=== PATIENT | male | born 1950 | race Caucasian/White ===

== ENCOUNTER → 2017-10-04 | Outpatient (CLI) | payer OTHER | LOC: M.RAD 10-01 15:42 | DX: N63.20 Unspecified lump in the left breast, unspecified quadrant (principal); N64.4 Mastodynia ==

== ENCOUNTER 2018-08-05 10:50 | Inpatient (IN) | payer OTHER ==
[~2018-08-05] VITALS: Ht 172.7 cm; Wt 88.5 kg
--- NOTE | ~2018-08-05 | CON ---
[address] [address] CONSULTATION Name: TANISHA LEO Room: [address] IN M.R.#: [id number] Admission: 08/05/18 Attend Phys: Jamaica Núñez MD Discharge: Date of : 46 Report #: [id number] THIS REPORT FOR: //name// CC: Jamaica Calhoun REASON FOR CONSULTATION: Elevated creatinine. HISTORY OF PRESENT ILLNESS: The patient is a 68-year-old male known to our practice, followed by Dr. Whiteside, history of membranous nephropathy, chronic kidney disease stage 4 with creatinine on the last visit in the office at 2.78 from 06/13/2018, history of AAA repair recently at [facility] with endovascular stent placement, urinary retention, and also having some bladder pain, he was supposed to undergo CT scan yesterday as an outpatient ordered by his urologist, but felt sick over the last few days and advised to go to the ER instead of going to the [facility]. He states that he has not eaten or drank much since 5 days ago, he feels nauseated. Vomiting x 1. No bowel movements for the last 5 days. Also, reports having some epigastric/chest pain. In the ER, he was noted to have elevated creatinine of 3, so admitted for further management. He is started on IV fluid and currently receiving normal saline at 100 mL per hour. He feels better today. He has not had bowel movement, but no vomiting and his energy level is also improving. Denies any shortness of breath, chest pains at this time or palpitations. PAST MEDICAL HISTORY: As mentioned above, history of membranous nephropathy, chronic kidney disease stage 4, baseline creatinine of about 2.7, hypoalbuminemia, chronic lower extremity edema, depression, urinary retention, anemia of chronic kidney disease, hypothyroidism, hyperlipidemia and recent AAA repair with endovascular stent. FAMILY HISTORY: Family history of diabetes in his sister and brother, heart disease in his mother, father and cause for father's at age 67. Liver disease on his sister. No family history of kidney disease. SOCIAL HISTORY: He is single. He is a retired construction project manager. Previous alcohol use, quit alcohol in 2013. He is a former smoker 1 pack per day for 60 years, but stopped in 2000. HOME MEDICATIONS: Allopurinol 100 mg daily, aspirin 81 mg daily, vitamin B12 1000 mcg weekly, Lasix 20 mg daily, lactulose 10 mg daily, levothyroxine 50 mcg daily, lovastatin 40 mg daily, metoprolol 100 mg daily, terazosin 2 mg at bedtime, and torsemide 20 mg daily. REVIEW OF SYSTEMS: The 12-point review of system was done and pertinent positives are mentioned in the history of present illness. All other systems [place] [address] CONSULTATION Name: LEOTANISHA MORAN Room: [address] IN ..#: [id number] Admission: 08/05/18 Attend Phys: Jamaica Núñez MD Discharge: Date of : 46 Report #: [id number] PHYSICAL EXAMINATION: VITAL SIGNS: Has blood pressure of 132/67, pulse rate of 71, respiratory rate of 12, temperature of 98.4, oxygen saturation is 100% on 1 liter nasal cannula. GENERAL: He does not appear to be in any respiratory distress at this time. HEENT: Has normocephalic, atraumatic head, pink conjunctivae and anicteric sclerae. No JVD. NECK: Supple neck. LUNGS: Sounds are clear to auscultation bilaterally. No wheezing. ABDOMEN: Soft, nontender, positive bowel sounds. CARDIOVASCULAR: Showed normal S1 and S2. Has a systolic murmur. ABDOMEN: Soft and nontender. Positive bowel sounds. EXTREMITIES: Showed trace bilateral lower extremity edema. He states that his edema has improved over the last few days, but normally has significant edema when he ambulates. SKIN: Showed warm and dry skin. LABORATORY VALUES: Reviewed. Sodium of 142, potassium 4.6, chloride 110, carbon dioxide 23, BUN 37, creatinine 2.9, glucose of 75, calcium 8, magnesium 1.6. White cell count of 6.5, hemoglobin 10.1, platelet count of 170. Urinalysis showed yellow urine, clear, 3+ protein, blood is 1+. His BUN and creatinine are 35 and 3, sodium 139, potassium 4.2, chloride 105, carbon dioxide 21. White cell count of 8.9, hemoglobin 12, platelet count of 247. Chest x-ray showed no acute cardiopulmonary abnormality. Nuclear scan V/Q, low probability for PE. Ultrasound renal is unremarkable. Moderate postvoid residual seen in the bladder. IMPRESSION: 1. Acute kidney injury on underlying chronic kidney disease stage 4 with baseline creatinine of 2.7 and GFR of 22. Acute kidney injury, likely prerenal azotemia with his reduced oral intake over the last 5 days. He is not too far off from his baseline, though. 2. Membranous nephropathy, followed by Dr. Whiteside in our office. 3. Essential hypertension. 4. Abdominal aortic aneurysm, recent endovascular stent placement. 5. Atypical chest pain. 6. Hyperlipidemia. 7. Proteinuria, again secondary to his nephrotic syndrome with membranous nephropathy. 8. Anemia of chronic kidney disease. 9. Chronic bilateral lower extremity edema. 10. Secondary hyperparathyroidism. 11. Hyperuricemia. 12. Urinary retention. PLAN: Agree with administration of gentle IV fluids. He is not too far off from his baseline, so if once current fluid is finished, [place] [address] CONSULTATION Name: TANISHA LEO Room: [address] IN M.R.#: [id number] Admission: 08/05/18 Attend Phys: Jamaica Núñez MD Discharge: Date of : 46 Report #: [id number] Per review of the office records, he has about 1465-6421 gram estimated proteinuria. We will need to review more to see what treatment has been given to him in the past for his membranous nephropathy. Also, need to review kidney biopsy reports. We will quantify proteinuria with urine [id number] ratio now. Follow up on limited echocardiogram and chest pain workup per flexible babysitter. Avoid nephrotoxins. We will continue calcitriol for secondary hyperparathyroidism. Follow up on repeat PTH level. For his urinary retention obtain bladder scan. May need to straight cath, if postvoid residual over 300. We will continue tamsulosin. Further recommendations to follow based on hospital course. Once again, thank you for the consult. By: [id number] Diaz MD /nt
[2018-08-05 10:55] VITALS: BP 189/88
[2018-08-05 11:06] LABS: ABSOLUTE BASOPHILS 0.1 thou/uL (0.0-0.2); ABSOLUTE EOSINOPHILS 0.3 thou/uL (0.0-0.7); ABSOLUTE LYMPHOCYTES 3.4 thou/uL (0.8-5.3); ABSOLUTE MONOCYTES 0.6 thou/uL (0.0-1.2); ABSOLUTE NEUTROPHILS 4.7 thou/uL (1.6-8.1); BASOPHILS 0.6 %; EOSINOPHILS 2.9 %; HEMATOCRIT 36.4 % (42.0-52.0); LYMPHOCYTES 37.7 %; MCH 32.1 pg (26.0-34.0); MCV 97.4 fL (80.0-100.0); MONOCYTES 6.4 %; MPV 7.5 fl. (7.2-11.1); NUCLEATED RBCS 0 /100WBC; PLATELET COUNT* 247 thou/uL (150-400); POLYS 52.4 %; RBC 3.74 mil/uL (4.50-6.00); RDW-CV 13.1 % (10.5-14.5); WBC 8.9 thou/uL (4.0-11.0)
[2018-08-05 11:20] LABS: PROTIME 10.5 Seconds (9.20-11.50)
[2018-08-05 11:21] LABS: ANION GAP 13 mmol/L (7-16); BUN 35 mg/dL (7-18); CALCIUM 8.7 mg/dL (8.5-10.1); CHLORIDE 105 mmol/L (98-107); CO2 21 mmol/L (21-32); GLUCOSE 110 mg/dL (70-99); POTASSIUM 4.2 mmol/L (3.5-5.1); SODIUM 139 mmol/L (136-145)
[2018-08-05 11:33] LABS: ALBUMIN 2.9 g/dL (3.4-5.0); ALKALINE PHOSPHATASE 133 U/L (46-116); LIPASE 138 U/L (73-393); NT-PRO BRAIN NAT PEPTIDE 2138 pg/mL (<300); SGOT 16 U/L (15-37); SGPT 16 U/L (30-65); TOTAL BILIRUBIN 0.3 mg/dL (<0.1-1.0); TOTAL PROTEIN 6.6 g/dL (6.4-8.2); TROPONIN-I LEVEL <0.06 ng/mL (<0.06)
--- NOTE | 2018-08-05 14:06 | NUR ---
PT'S PCP CONTACTED TO OBTAIN MEDICATION LIST
[2018-08-05] MEDS ORDERED: B12INJ IM (14:16)
[2018-08-05] MEDS ORDERED: ALLOPURINOL 10100 M1 PO (14:16)
[2018-08-05] MEDS ORDERED: ASPIR 8181 MG PO (14:16)
[2018-08-05] MEDS ORDERED: LASIX 20 MG TAB20 MG PO (14:17)
[2018-08-05] MEDS ORDERED: SYNTHROID50 MCG PO (14:17)
[2018-08-05] MEDS ORDERED: LACTULOSE10 GM/154 PO (14:17)
[2018-08-05] MEDS ORDERED: HYTRIN 2MG CAPSU2 M1 PO (14:18)
[2018-08-05] MEDS ORDERED: FLOMAX0.4 MG PO (14:18)
[2018-08-05] MEDS ORDERED: ALTOPREV40 M1 PO (14:18)
[2018-08-05] MEDS ORDERED: TOPROL XL100 MG PO (14:18)
--- NOTE | 2018-08-05 16:56 | EKG ---
[place] [address] ELECTROCARDIOGRAM REPORT Name: TANISHA LEO Room: [place] [address] ADM IN .R.#: [id number] Admission: 08/05/18 Attend Phys: Jamaica Núñez MD Discharge: Date of : 46 Report #: [id number] THIS REPORT FOR: //name// [facility] ED Test Date: 2018-08-05 Test Time: 10:54:35 Pat Name: TANISHA LEO Department: Room: [facility] Gender: Nba Player: : 1950 Requested By: Lynette Kenny Order Number: [id number] MD: Driss Price Measurements Intervals [place] Rate: 76 P: 30 MD: 180 QRS: 27 QRSD: 88 T: 32 QT: 407 QTc: 458 Interpretive Statements Sinus rhythm Baseline wander in lead(s) V1 No previous ECG available for comparison Electronically Signed On 08-05-2018 16:56:12 CDT by Driss Price [email or web address] <ELECTRONICALLY SIGNED> By: Driss Price MD, [facility] 08/05/18 1656 1054 105 Driss Price MD, FACC /EPI
[2018-08-05 18:46] VITALS: BP 147/76
[2018-08-05 20:01] VITALS: BP 137/86
[2018-08-05 22:17] LABS: URINE BILIRUBIN NEGATIVE (Negative); URINE BLOOD 1+ (Negative); URINE CLARITY CLEAR; URINE COLOR YELLOW; URINE GLUCOSE-RANDOM 1+ (Negative); URINE KETONES TRACE (Negative); URINE LEUKOCYTES NEGATIVE (Negative); URINE NITRITE NEGATIVE (Negative); URINE PROTEIN 3+ (Negative); URINE SPECIFIC GRAVITY 1.025 (1.005-1.030); URINE UROBILINOGEN 0.2 E.U./dl (0.2-1.0)
[2018-08-05 22:35] LABS: BACTERIA 1-9 Few /HPF (None Seen); CASTS None Seen /LPF (None Seen); CRYSTALS None Seen /LPF (None Seen); SQUAMOUS NONE SEEN /LPF (0-3); URINE RBC 0-2 Rare /HPF (0-2); URINE WBC 0-5 Rare /HPF (0-5)
[2018-08-06 00:29] VITALS: BP 142/66; BP 148/72
[2018-08-06 04:00] VITALS: BP 137/60
[2018-08-06 05:16] LABS: HEMOGLOBIN 10.1 gm/dL (14.0-18.0); MCH 32.9 pg (26.0-34.0); MCHC 33.7 g/dL (28.0-37.0); MCV 97.5 fL (80.0-100.0); MPV 8.4 fl. (7.2-11.1); RBC 3.08 mil/uL (4.50-6.00); RDW-CV 12.7 % (10.5-14.5); WBC 6.5 thou/uL (4.0-11.0)
[2018-08-06 05:27] LABS: ALBUMIN 2.2 g/dL (3.4-5.0); CREATININE 2.9 mg/dL (0.6-1.3); MAGNESIUM 1.6 mg/dL (1.8-2.4); POTASSIUM 4.6 mmol/L (3.5-5.1); TOTAL BILIRUBIN 0.2 mg/dL (<0.1-1.0); TOTAL PROTEIN 5.2 g/dL (6.4-8.2)
--- NOTE | 2018-08-06 06:03 | NUR ---
PT ARRIVED TO UNIT AT 2044 VIA CART. [facility] PROGRAM REPRESENTATIVE IN PLACE, TRACING SB/SR THIS SHIFT. HOURLY ROUNDING COMPLETED. IV FLUIDS INFUSING. PT DENIES PAIN THIS SHIFT. CALL LIGHT WITHIN REACH.
[2018-08-06 08:00] VITALS: BP 132/67
--- NOTE | 2018-08-06 09:00 | NUR ---
ASSUMED CARE OF PT AT 0730. PT RESTING IN BED. PT A&0X4, DENIES ANY PAIN OR SHORTNESS OF BREATH AT THIS TIME. PT TRACING SB/SR ON THE WINDOW TRIMMER APPRENTICE. ON 1L NC SAT UPPER 90'S. IVF. PT UP WITH 1 ASSIST AND CANE TO BATHROOM. STRICT I/O IN PLACE. PVR 176. UROLOGY, NEPHRO AND CARDIO CONSULT IN PLACE. PT GOAL FOR TODAY IS TITRATE OXYGEN, REMAIN FREE FROM CHEST PAIN AND PT AND OT EVAL AND TREAT. AM ASSESSMENT CHARTED. MEDICATIONS PER APR. PT REPOSITIONS SELF. HOURLY ROUNDING OBSERVED. BED IN LOW POSITION. CALL LIGHT WITHIN REACH. WILL CONTINUE PLAN OF CARE.
--- NOTE | 2018-08-06 10:19 | NUR ---
Nutrition: Pt admitted with CHF, elevated BNP, chest pain. Pt had recent AAA repair at [facility]. Has N/V, no BM, no appetite BELT MOLDER. Now, he has no nausea, no chest pain. Diet is advanced to 2gm Na. Alb 2.2, BUN 37, cr 2.9. Wt: 195#. Hopeful for good meal intake. Pt feels better. Low to mild risk.
[2018-08-06 12:18] VITALS: BP 160/70
--- NOTE | 2018-08-06 14:30 | 2DMMODE ---
[place] [address] 2 D/M-MODE ECHOCARDIOGRAM Name: AHMETTANISHA Room: [address] IN [facility]#: [id number] Admission: 08/05/18 Attend Phys: Jamaica Núñez, Discharge: Date of : 46 Date of Service: 08/06/18 1430 Report #: [id number] THIS REPORT FOR: //name// APPROVED REPORT Study performed: 08/06/2018 11:45:38 EXAM: Limited 2D, Doppler, and color-flow Echocardiogram Patient Location: In-Patient Room #: 209 Status: routine BSA: 2.04 HR: 55 bpm BP: 132/67 mmHg Rhythm: NSR Other Information Study Quality: Good Indications Elevated BNP 2D Dimensions IVSd: 12.30 (7-11mm) LVOT Diam: 20.61 (18-24mm) LVDd: 52.60 mm PWd: 12.17 (7-11mm) Ascending Ao: 34.59 (22-36mm) LVDs: 33.33 (25-40mm) Volumes Left Atrial Volume (Systole) LA ESV Index: 35.00 mL/m2 Aortic Valve AoV Peak Erich.: 2.15 m/s AO Peak Gr.: 18.40 mmHg LVOT Max P.82 mmHg AO Mean Gr.: 11.16 mmHg LVOT Mean P.91 mmHg LVOT Max V: 1.31 m/s AO V2 VTI: 43.12 cm LVOT Mean V: 0.77 m/s EAN (VTI): 2.12 cm2 LVOT V1 VTI: 27.42 cm Left Ventricle The left ventricle is normal size. There is normal LV segmental wall motion. Mild concentric left ventricular hypertrophy. The left ventricular systolic function is normal. The left ventricular ejection fraction is within the normal range. LVEF is 60-65%. [place] [address] 2 D/M-MODE ECHOCARDIOGRAM Name: LEOTANISHA MORAN Room: [address] IN .R.#: [id number] Admission: 08/05/18 Attend Phys: Jamaica Núñez, Discharge: Date of : 46 Date of Service: 08/06/18 1430 Report #: [id number] Right Ventricle The right ventricle is normal size. The right ventricular systolic function is normal. Atria Left atrium is at the upper limits of normal. The right atrium size is normal. Aortic Valve Mild aortic valve sclerosis. No aortic regurgitation is present. Mild aortic stenosis.Mean gradient 11mmHg Mitral Valve The mitral valve is normal in structure. There is no mitral valve regurgitation noted. No evidence of mitral valve stenosis. Tricuspid Valve The tricuspid valve is normal in structure. Unable to assess PA pressure. Trace tricuspid regurgitation. Pulmonic Valve The pulmonary valve is normal in structure. There is no pulmonic valvular regurgitation. Great Vessels The aortic root is normal in size. IVC is normal in size and collapses >50% with inspiration. Pericardium There is no pericardial effusion. <Conclusion> LVEF is 60-65%. There is normal LV segmental wall motion. No aortic regurgitation is present. Mild aortic stenosis.Mean gradient 11mmHg Mild concentric left ventricular hypertrophy. There is no mitral valve regurgitation noted. No evidence of mitral valve stenosis. <ELECTRONICALLY SIGNED> By: Willy Donnelly MD, FACC 08/06/18 1430 1430 1430 Willy Donnelly MD, FACC /INF
[2018-08-06 15:48] VITALS: BP 124/69
--- NOTE | 2018-08-06 16:18 | NUR ---
Pt is A&O. Resides at home, dtr lives with him. Dtr does most of the IADLs, Pt independent with ADLs and continues to drive some. Pt uses a cane for mobility. Pt stated that he did 3 months of outpt therapy here at [facility]. No hx of HH or SNF. No home o2. Goal is home at dc, Pt open to HH if ordered. Following.
--- NOTE | 2018-08-06 18:05 | NUR ---
NO ACUTE CHANGES THROUGHOUT SHIFT, REFER TO CHARTING. PT SLOWLY PROGRESSING TOWARDS GOALS. PVR COMPLETED WITH RESULTS OF LESS THAN 200. UA OBTAINED. REFER TO RESULTS. CONTINUES TO TRACE SB/SR ON THE PRIVATE DUTY RN. ON 1L NC SAT UPPER 90'S. PT UP WITH SBA AND CANE TO BATHROOM. IVF. UROLOGY CONSULT IN PLACE-NO NEW ORDERS RECEIVED AT THIS TIME-WILL CONTINUE TO MONITOR PVR'S. PT WORKED WITH PT AND OT TODAY-TOLERATED WELL. PT SEEN BY CARDIOLOGY TODAY-ORDERS RECEIVED FOR ECHO. REFER TO RESULTS. MEDICATIONS PER APR. PT REPOSITIONS SELF. HOURLY ROUNDING OBSERVED. BED IN LOW POSITION. CALL LIGHT WITHIN REACH. WILL CONTINUE PLAN OF CARE.
[2018-08-06 20:00] VITALS: BP 152/75
[2018-08-07] VITALS: BP 167/78
[2018-08-07 04:00] VITALS: BP 172/82
--- NOTE | 2018-08-07 07:05 | NUR ---
PATIENT SLEPT MOST OF THE NIGHT. IV FLUIDS CONTINUE TO INFUSE AT 100 ML/HR. PATIENT HAD NO COMPLAINTS OF PAIN. PAITENT REMAINS SINUS SUZAN ON THE MONITOR. WILL CONTINUE TO MONITOR.
[2018-08-07 07:45] VITALS: BP 149/80
--- NOTE | 2018-08-07 09:00 | NUR ---
ASSUMED CARE OF PT AT 0730. PT RESTING IN BED. PT A&0X4, DENIES ANY PAIN OR SHORTNESS OF BREATH AT THIS TIME. PT TRACING SB/SR ON THE TOBACCO PACKING MACHINE OPERATOR. ON RA SAT UPPER 90'S. PT UP WITH 1 ASSIST AND CANE TO BATHROOM. PT GOAL FOR TODAY IS STRICT I/O NEPHRO CONSULT IN PLACE AND HAVE A BOWEL MOVEMENT. AM ASSESSMENT CHARTED. MEDICATIONS PER APR. PT REPOSITIONS SELF. HOURLY ROUNDING OBSERVED. BED IN LOW POSITION. CALL LIGHT WITHIN REACH. WILL CONTINUE PLAN OF CARE.
[2018-08-07 09:15] LABS: CALCIUM 7.8 mg/dL (8.5-10.1)
[2018-08-07 11:48] VITALS: BP 195/91
--- NOTE | 2018-08-07 11:58 | NUR ---
Spoke with , anticipate dc tomorrow to home with HH. Following.
--- NOTE | 2018-08-07 17:18 | CON ---
[address] [address] CONSULTATION Name: TANISHA LEO Room: [address] IN M.R.#: [id number] Admission: 08/05/18 Attend Phys: Jamaica Núñez MD Discharge: Date of : 46 Report #: [id number] THIS REPORT FOR: //name// CC: Jamaica Tomasoh DATE OF SERVICE: 08/06/2018 UROLOGY CONSULT NOTE REASON FOR CONSULTATION: Urinary retention. REFERRING PHYSICIAN: Jamaica Núñez MD HISTORY OF PRESENT ILLNESS: This is a 68-year-old gentleman who is well known to my partner, Dr. Mcdonnell, who follows him for benign prostate hypertrophy and microscopic hematuria. He was seen most recently by Dr. Mcdonnell on 07/08/2018 to follow up on his microscopic hematuria and benign prostate hypertrophy. He has had noncontrast CT scan in early 02/2018 and cystoscopy in 04/08/2018, which revealed bilobar hypertrophy of the prostate, moderate trabeculations and scattered cellules without any tumors or lesions. He was tentatively scheduled for cystoscopy with bilateral retrogrades; however, he was found to have a large abdominal aortic aneurysm and recently underwent repair for that. He was actually scheduled to follow up with Dr. Mcdonnell today, but the patient developed chest pain and was advised to be presented to the Emergency Room, for which he was admitted and further workup pursued. A renal ultrasound was obtained due to the patient's significant renal insufficiency and it revealed a moderate postvoid residual. Urology was consulted for urinary retention. At the time of examination, the patient denied any frequency or urgency, does have a slow urinary stream and has to double void to completely empty, but these findings are stable. He is taking Flomax without any significant side effects. PAST MEDICAL HISTORY: Coronary artery disease, chronic renal insufficiency, congestive heart failure, hypertension and bradycardia. ALLERGIES: No known drug allergies. SOCIAL HISTORY: He is positive for tobacco use. Chews tobacco and smokes every day. Denies alcohol use. FAMILY HISTORY: Noncontributory. REVIEW OF SYSTEMS: See HPI. A 14-point review of systems otherwise reviewed and negative. MEDICATIONS: Allopurinol, aspirin, vitamin B12, furosemide, lactulose, [place] [address] CONSULTATION Name: TANISHA LEO Room: [address]#: [id number] Admission: 08/05/18 Attend Phys: Jamaica Núñez MD Discharge: Date of : 46 Report #: [id number] Synthroid, lovastatin, metoprolol, tamsulosin, and terazosin. PHYSICAL EXAMINATION: VITAL SIGNS: Temperature 36.8, heart rate 57, respiratory rate 16, blood pressure 124/69. GENERAL: He is alert and oriented x3, no apparent distress. HEENT: Normocephalic, atraumatic. NECK: Supple. LUNGS: Clear. HEART: Regular rate and rhythm. ABDOMEN: Soft, nontender, nondistended. BACK: No CVA tenderness. SKIN: Warm, dry and intact. EXTREMITIES: No cyanosis, clubbing, edema. NEUROLOGIC: Cranial nerves 2-12 are intact. GENITOURINARY: No suprapubic tenderness or palpable bladder fullness. LABORATORY DATA: White count 6.5, hemoglobin 10.1, platelets 170. Sodium 142, potassium 4.6, BUN 37, creatinine 2.9. Urinalysis, 0-2 red blood cells, 0-5 white blood cells 1-9 bacteria. Renal ultrasound reviewed the images that show unremarkable kidneys, moderate postvoid residual bladder volume, this was not measured. ASSESSMENT AND PLAN: 1. Urinary retention, likely secondary to benign prostatic hypertrophy. 2. Postvoid residuals have been 165 and 180 per the nurses. 3. I recommend recheck another PVR. If it remains less than 200, then no further testing is necessary at this time. 4. Continue Flomax. 5. Follow up with Dr. Mcdonnell in 2-3 weeks after discharge to check postvoid residual and continue workup for microscopic hematuria. 6. Microscopic hematuria. Currently, the patient is undergoing workup by Dr. Mcdonnell. Noncontrast CT and cystoscopy so far have been negative other than benign prostate hypertrophy. There was tentative plans for cystoscopy with bilateral retrogrades once the patient has recovered from his abdominal aortic aneurysm surgery. This can be done as an outpatient when the patient is more stable. Thank you for this consult. [place] [address] CONSULTATION Name: TANISHA LEO Room: [address] IN [facility]#: [id number] Admission: 08/05/18 Attend Phys: Jamaica Núñez MD Discharge: Date of : 46 Report #: [id number] Follow up with Dr. Mcdonnell in 2-4 weeks. <ELECTRONICALLY SIGNED> By: Fco Spencer MD 08/07/18 1718 1748 [id number] Spencer MD /nt
--- NOTE | 2018-08-07 17:52 | NUR ---
NO ACUTE CHANGES THROUGHOUT SHIFT. REFER TO CHARTING. PT PROGRESSING TOWARDS GOALS. PT GIVEN LACTULOSE AND MAG CITRATE TODAY WITH RELIEF. PT HAD MULTIPLE BOWEL MOVEMENTS. PT MADE MED SURG STATUS. PT WORKED WITH PT TODAY-TOLREATED WELL. ON RA SAT UPPER 90'S. DENIES ANY PAIN OR SHORTNESS OF BREATH THIS AFTERNOON. PT UP WITH 1 ASSIST AND CANE TO BATHROOM. MEDICATIONS PER MAR. PT REPOSITIONS SELF. HOURLY ROUNDING OBSERVED. BED IN LOW POSITION. CALL LIGHT WITHIN REACH. WILL CONTINUE PLAN OF CARE.
[2018-08-07 19:10] LABS: COMPLEMENT-C4 16 mg/dL (14-44); IgA 217 mg/dL (61-437); IgG 986 mg/dL (700-1600); IgM 94 mg/dL (20-172)
[2018-08-07 20:00] VITALS: BP 194/97
[2018-08-08] VITALS: BP 147/68
[2018-08-08 04:00] VITALS: BP 146/65
[2018-08-08 04:15] LABS: HEMATOCRIT 29.2 % (42.0-52.0); HEMOGLOBIN 9.6 gm/dL (14.0-18.0); MCHC 32.9 g/dL (28.0-37.0); MCV 97.3 fL (80.0-100.0); MPV 8.8 fl. (7.2-11.1); RDW-CV 13.1 % (10.5-14.5); WBC 6.6 thou/uL (4.0-11.0)
[2018-08-08 04:36] LABS: CALCIUM 8.2 mg/dL (8.5-10.1); MAGNESIUM 1.7 mg/dL (1.8-2.4); POTASSIUM 4.5 mmol/L (3.5-5.1)
[2018-08-08 04:57] LABS: CALCIUM 8.4 mg/dL (8.5-10.1); CREATININE 2.9 mg/dL (0.6-1.3); POTASSIUM 4.7 mmol/L (3.5-5.1)
--- NOTE | 2018-08-08 06:58 | NUR ---
PATIENT SLEPT MOST OF THE NIGHT. IV REMAINS SALINE LOCKED. PATIENT WAS GIVEN TYLENOL ONCE FOR PAIN. PATIENT HAD NO OTHER COMPLAINTS. WILL CONTINUE TO MONITOR.
[2018-08-08 08:00] VITALS: BP 170/77
[2018-08-08] MEDS ORDERED: NORVASC2.5 MG PO (10:48)
[2018-08-08] MEDS ORDERED: HYTRIN 1 MG CAP1 MG PO (10:48)
--- NOTE | 2018-08-08 11:23 | NUR ---
SKIRT TRIMMER SPOKE TO THE PAITENT TO DISCUSS DISCHARGE PLANNING NEEDS AND HH AT D/C. PATIENT DECLINED. PATIENT STATES 'I DON'T THINK I NEED THAT'. D/C HOURLY SHIFT INFORMED PATIENT OF THE BENEFITS OF HH, AND PATIENT CONTINUED TO DECLINE. D/C HOURLY SHIFT INFORMED THE RN IN-CHARGE OF THE PATIENT OF THIS. CM WILL REMAIN AVAILABLE TO ASSIST AND FOLLOW NEEDED.
[2018-08-08 13:54] VITALS: BP 170/77
--- NOTE | 2018-08-08 14:50 | NUR ---
RECEIVED REPORT FROM ALRETH HOWARD. ASSUMED CARE OF PT AROUND 0730. PT A&O X4, OCCASIONALLY FORGETFUL. VSS. PT M/S STATUS. AM ASSESSMENT AND VITALS COMPLETED CHARTED. PVR OBTAINED, SEE CHARTING. IV INTACT. PT ABLE TO SHOWER THIS AM. TOLERATING DIET. DISCHARGE ORDERS RECEIVED. DISCHARGE COMPLETED DOCUMENTED. PT AWARE OF OUTPATIENT RENAL BIOPSY - OUTPATIENT SCHEDULING TO CALL PT. PT AWARE OF FOLLOW UP APPOINTMENTS. IV REMOVED. ALL BELONGINGS GATHERED AND LEAVING WITH PT. SCRIPTS GIVEN. CARE NOTES GIVEN. PT GETTING DRESSED IN ROOM. WCTM UNTIL PT READY TO LEAVE. CALL LIGHT WITHIN REACH.
[2018-08-08 16:06] LABS: HEPATITIS B SURFACE AG Negative (Negative)
[2018-08-10 07:35] LABS: ANA INTERPRETATION Negative (Negative)
== END 2018-08-08 15:15 | disposition home or self-care (01) | DRG 391 ==
LOC: M.ERS 10:50 → M.TBA-ER 14:36 → M.2W 14:36
PROVIDERS: Internal Medicine; Internal Medicine Nephrology; Personal Emergency Response Attendant; ADMIT Internal Medicine
DX: K21.9 Gastro-esophageal reflux disease without esophagitis (principal); N17.0 Acute kidney failure with tubular necrosis; E44.1 Mild protein-calorie malnutrition; N18.4 Chronic kidney disease, stage 4 (severe); N25.81 Secondary hyperparathyroidism of renal origin; I12.9 Hypertensive chronic kidney disease with stage 1 through stage 4 chronic kidney disease, or unspecified chronic kidney disease; R00.1 Bradycardia, unspecified; E78.5 Hyperlipidemia, unspecified; E78.00 Pure hypercholesterolemia, unspecified; I16.0 Hypertensive urgency; E03.9 Hypothyroidism, unspecified; F32.9 Major depressive disorder, single episode, unspecified; E11.21 Type 2 diabetes mellitus with diabetic nephropathy; D63.8 Anemia in other chronic diseases classified elsewhere; E79.0 Hyperuricemia without signs of inflammatory arthritis and tophaceous disease; E11.22 Type 2 diabetes mellitus with diabetic chronic kidney disease; R33.9 Retention of urine, unspecified; I71.4 Abdominal aortic aneurysm, without rupture; I25.10 Atherosclerotic heart disease of native coronary artery without angina pectoris; F17.220 Nicotine dependence, chewing tobacco, uncomplicated; Z79.82 Long term (current) use of aspirin; Z79.899 Other long term (current) drug therapy; Z83.3 Family history of diabetes mellitus; Z82.49 Family history of ischemic heart disease and other diseases of the circulatory system; Z68.29 Body mass index [BMI] 29.0-29.9, adult